=== PATIENT | female | born 1945 ===

== ENCOUNTER 2018-08-03 11:52 | Emergency (ER) | payer OTHER ==
[2018-08-03] MEDS ORDERED: Lidocaine 1% 20 ML MDV ONE (11:59)
--- NOTE | 2018-08-03 12:42 | RAD ---
EXAM: Right wrist: 3 views INDICATIONS: Postreduction COMPARISON: Prereduction films FINDINGS: Distal radius fracture shows some reduction. There continues to be dorsal displacement and angulation of the major distal fragment. Cast material is in place.
== END 2018-08-03 13:05 | disposition home or self-care (01) ==
LOC: SCSER 11:52
DX: S52.501A Unspecified fracture of the lower end of right radius, initial encounter for closed fracture (principal); W19.XXXA Unspecified fall, initial encounter
CPT/HCPCS: 25605; J2001